=== PATIENT | female | born 1975 | race Asian ===

== ENCOUNTER 2022-12-29 04:07 | Emergency (ER) | payer OTHER ==
[~2022-12-29] VITALS: Ht 165.1 cm; Wt 59.9 kg
[2022-12-29 04:10] VITALS: BP_SYST 143
[2022-12-29] MEDS ORDERED: MAG-AL HYDROX/SIMETH 30 ML UDC PO ONE (04:30)
[2022-12-29] MEDS ORDERED: KETOROLAC TROMETHAMINE 30 MG VIAL IM ONE (04:30)
[2022-12-29] MEDS ORDERED: ONDANSETRON 4 MG ODT TAB PO ONE (04:30)
[2022-12-29 04:41] LABS: BASOPHILS % (AUTO) 0.8 % (0.0-2.0); EOSINOPHILS # (AUTO) 0.1 K/uL (0.0-0.4); EOSINOPHILS % (AUTO) 1.1 % (0.0-4.0); HEMATOCRIT 39.2 % (36-48); HEMOGLOBIN 12.9 g/dL (12.0-16.0); MEAN CORPUSCULAR HEMOGLOBIN 30 pg (27-31); MEAN CORPUSCULAR HGB CONC 33 % (32-36); MEAN CORPUSCULAR VOLUME 93 fL (79.0-98.0); MONOCYTES # (AUTO) 0.4 K/uL (0.0-1.0); MONOCYTES % (AUTO) 7.8 % (1.7-9.3); NEUTROPHILS # (AUTO) 2.8 K/uL (1.8-7.7); NEUTROPHILS % (AUTO) 52.3 % (40.0-70.0); PLATELET COUNT (AUTO) 252 K/uL (130-430); RED BLOOD CELL COUNT(AUTO) 4.23 MIL/uL (4.2-6.2); RED CELL DISTRIBUTION WIDTH 12.5 % (9.0-15.0); WHITE BLOOD COUNT (AUTO) 5.3 K/uL (4.8-10.8)
[2022-12-29 04:49] LABS: CREATININE 0.71 mg/dL (0.55-1.30)
[2022-12-29 04:54] LABS: ALBUMIN 4.1 g/dL (3.4-4.8); TOTAL BILIRUBIN 0.3 mg/dL (0.0-1.0)
[2022-12-29] MEDS ORDERED: OMEP20CA15 PO (05:04)
[2022-12-29] MEDS ORDERED: ONDA-8 TL (05:04)
[2022-12-29 05:10] VITALS: BP_SYST 143
== END 2022-12-29 05:10 | disposition home or self-care (01) ==
LOC: SED 04:07
DX: K29.70 Gastritis, unspecified, without bleeding (principal); R10.13 Epigastric pain; R11.10 Vomiting, unspecified; Z79.899 Other long term (current) drug therapy
CPT/HCPCS: 99283; 80053; 83690; 85025; 36415; 96372; Q0162; J1885

== ENCOUNTER 2023-08-04 02:52 | Emergency (ER) | payer OTHER, MEDICAID ==
[~2023-08-04] VITALS: Ht 165.1 cm; Wt 72.1 kg
[~2023-08-04 02:52] MED LIST: OMEP20CA15 PO; ONDA-8 TL
[2023-08-04 03:08] VITALS: BP_SYST 147; PULSE 65; RESP 19; TEMP 97.8; O2SAT 99
[2023-08-04] MEDS ORDERED: NACL 0.9% 1,000 ML IV ONE (03:30)
[2023-08-04] MEDS ORDERED: MORPHINE 4 MG INJ. 4 MG/ML VIAL IVP ONE ×3 (03:30→08:45)
[2023-08-04] MEDS ORDERED: ONDANSETRON HCL 4 MG/2 ML VIAL IVP ONE ×2 (03:30→05:45)
[2023-08-04 03:50] LABS: BILIRUBIN,URINE NEGATIVE (NEGATIVE); BLOOD, URINE 2+ (NEGATIVE); COLOR,URINE YELLOW (YELLOW); GLUCOSE,URINE NEGATIVE (NEGATIVE); KETONES,URINE NEGATIVE (NEGATIVE); NITRITE, URINE POSITIVE (NEGATIVE); PROTEIN URINE NEGATIVE (NEGATIVE); UROBILINOGEN,URINE 0.2 (0.2-1.0)
[2023-08-04 04:06] LABS: BASOPHILS % (AUTO) 0.5 % (0.0-2.0); EOSINOPHILS % (AUTO) 0.4 % (0.0-4.0); HEMATOCRIT 38.7 % (36-48); HEMOGLOBIN 12.5 g/dL (12.0-16.0); LYMPHOCYTES # (AUTO) 1.7 K/uL (1.0-5.5); LYMPHOCYTES % (AUTO) 19.1 % (20.5-51.5); MEAN CORPUSCULAR HEMOGLOBIN 30 pg (27-31); MEAN CORPUSCULAR HGB CONC 32 % (32-36); MEAN CORPUSCULAR VOLUME 93 fL (79.0-98.0); MONOCYTES # (AUTO) 0.3 K/uL (0.0-1.0); MONOCYTES % (AUTO) 3.8 % (1.7-9.3); NEUTROPHILS # (AUTO) 6.7 K/uL (1.8-7.7); NEUTROPHILS % (AUTO) 76.2 % (40.0-70.0); PLATELET COUNT (AUTO) 270 K/uL (130-430); RED BLOOD CELL COUNT(AUTO) 4.18 MIL/uL (4.2-6.2); RED CELL DISTRIBUTION WIDTH 12.9 % (9.0-15.0); WHITE BLOOD COUNT (AUTO) 8.8 K/uL (4.8-10.8)
[2023-08-04 04:11] LABS: CALCIUM 8.9 mg/dL (8.4-11.0); CREATININE 0.79 mg/dL (0.55-1.30); POTASSIUM 3.2 mmol/L (3.5-5.1)
[2023-08-04 04:15] LABS: ALBUMIN 3.9 g/dL (3.4-4.8); TOTAL BILIRUBIN 0.3 mg/dL (0.0-1.0)
[2023-08-04 04:16] LABS: CLARITY/URINE SLIGHTLY CLOUDY (CLEAR); LEUKOCYTE ESTERASE ,URINE 1+ (NEGATIVE)
[2023-08-04 04:17] LABS: BACTERIA,URINE MANY /HPF (None Seen); WBC,URINE 20-50 /HPF (0-3)
[2023-08-04] MEDS ORDERED: cefTRIAXone 1 GM IVPB PREMIX 50 ML IV ONE (05:45)
[2023-08-04] MEDS ORDERED: ONDANSETRON 4 MG ODT TAB ONE (07:40)
[2023-08-04 09:12] VITALS: BP_SYST 132; PULSE 62; RESP 18; TEMP 97.7; O2SAT 99
== END 2023-08-04 11:45 | disposition short-term general hospital (02) ==
LOC: SED 02:52
DX: K81.0 Acute cholecystitis (principal); N39.0 Urinary tract infection, site not specified; R10.13 Epigastric pain; R11.2 Nausea with vomiting, unspecified; Z79.899 Other long term (current) drug therapy; Z20.822 Contact with and (suspected) exposure to COVID-19
CPT/HCPCS: 99285; 96365; 76700; 96375; 96361; 87426; 80053; 81001; 82150; 83690; 85025; 87086; 36415; 96376; 81000; 81015; Q0162; J0696; J2405; J2270; J7030